=== PATIENT | female | born 1980 | race Caucasian/White ===

== ENCOUNTER → 2024-08-08 | Outpatient (CLI) | payer BC, SELFPAY ==
[2024-08-08 08:20] LABS: Misc Send Out* See Sep Rpt
[2024-08-08 09:43] LABS: Glucose Estimated Average 111 mg/dL (80-131); Hemoglobin A1C 5.5 % Hgb (4.8-6.0)
[2024-08-08 09:49] LABS: Glucose,Fasting 100 mg/dL (74-106)
[2024-08-13 07:06] LABS: hs-CRP* 3.9 mg/L
== END | disposition home or self-care (01) ==
LOC: COPL 08:00
PROVIDERS: PCP Internal Medicine; Referring Provider Psychiatry & Neurology Psychiatry; Visit Provider Psychiatry & Neurology Psychiatry
DX: F41.1 Generalized anxiety disorder (principal); F34.1 Dysthymic disorder; E55.9 Vitamin D deficiency, unspecified; E56.9 Vitamin deficiency, unspecified; E28.2 Polycystic ovarian syndrome; R52 Pain, unspecified; R73.09 Other abnormal glucose; Z79.899 Other long term (current) drug therapy
CPT/HCPCS: 36415; 82947; 83036; 86141

== ENCOUNTER → 2025-03-11 | Outpatient (CLI) | payer BC, SELFPAY ==
[2025-03-11 08:09] LABS: Misc Send Out* See Sep Rpt
[2025-03-11 08:46] LABS: Collection Type, Urine Clean Catch
[2025-03-11 09:19] LABS: INR 1.0 (0.9-1.3); Partial Thromboplastin Time 28.9 Seconds (22.0-36.0); Prothrombin Time 10.5 Seconds (9.0-12.2)
[2025-03-11 09:21] LABS: Basophils # (Auto) 0.1 Thou/mm3 (0.0-0.2); Basophils % (Auto) 1 % (0-2.5); Eosinophils # (Auto) 0.3 Thou/mm3 (0.0-0.5); Eosinophils % (Auto) 4 % (0-10); Hematocrit 45.0 % (36.0-46.0); Hemoglobin 15.2 g/dL (12.0-16.0); Immature Granulocytes Auto 0.02 Thou/mm3 (0.00-0.00); Lymphocytes # (Auto) 2.6 Thou/mm3 (1.0-4.8); Lymphocytes % (Auto) 36 % (10-50); Mean Corpuscular HGB Conc 33.8 g/dl (31.0-37.0); Mean Corpuscular Hemoglobin 29.2 pg (25.0-35.0); Mean Corpuscular Volume 86 fL (80-100); Monocytes # (Auto) 0.5 Thou/mm3 (0.0-0.8); Monocytes % (Auto) 7 % (0-12); Neutrophils # (Auto) 3.7 Thou/mm3 (1.8-7.7); Neutrophils % (Auto) 52 % (37-80); Nucleated Red Blood Cell # 0.00 Thou/mm3 (0.00-0.00); Nucleated Red Blood Cell % 0 /100 WBC (0); Platelet Count 304 Thou/mm3 (140-440); RDW Standard Deviation 39.3 fL (36.4-46.3); Red Blood Count 5.21 Miln/mm3 (4.00-5.20); White Blood Count 7.1 Thou/mm3 (3.6-11.0)
[2025-03-11 09:22] LABS: Bilirubin,Urine Negative (Negative); Blood,Urine Negative (Negative); Clarity,Urine Clear (Clear/Hazy); Color,Urine Lt-Yellow (Lt Yel-Yel); Glucose, Urine Negative (Negative); Ketones,Urine Negative (Negative); Leukocyte Esterase,Urine Negative (Negative); Nitrite,Urine Negative (Negative); PH,Urine 6.0 (5.0-7.0); Protein,Urine Negative (Neg - Trace); RBC,Urine 1 /hpf (0-3); Specific Gravity,Urine 1.013 (1.001-1.035); Squamous Epithelial Cell,Urine 2 /hpf (0-5); Urobilinogen,Urine Negative mg/dL (0.0-1.0); WBC,Urine 1 /hpf (0-5)
[2025-03-11 09:38] LABS: Iron 58 mcg/dL (50-170); Percent Iron Saturation 19 % (20-55); Total Iron Binding Capacity 302 mcg/dL (250-425); Unsaturated Iron Binding 244 (225-295)
[2025-03-11 09:41] LABS: Glucose Estimated Average 103 mg/dL (80-131); Hemoglobin A1C 5.2 % Hgb (4.8-6.0)
[2025-03-11 09:44] LABS: Alanine Aminotransferase 8 U/L (10-49); Albumin, Serum 4.3 gm/dL (3.5-5.0); Albumin/Globulin Ratio 1.7 (1.2-2.2); Alkaline Phosphatase 70 U/L (46-116); Anion Gap 9 (7-16); Aspartate Amino Transferase 20 U/L (0-34); BUN/Creatinine Ratio 9 Ratio (12-20); Bilirubin,Total 0.4 mg/dL (0.3-1.2); Blood Urea Nitrogen 8 mg/dL (9-23); Calcium 10.0 mg/dL (8.3-10.6); Calcium (Corrected) 10.0 mg/dL (8.5-10.1); Carbon Dioxide 25.8 mMol/L (20.0-31.0); Cardiac Risk Estimate 3.9 RATIO (3.7-5.6); Chloride 106 mMol/L (98-107); Cholesterol 162 mg/dL (132-200); Creatinine (Component) 0.9 mg/dL (0.6-1.3); Free T4 (Free Thyroxine) 1.17 ng/dL (0.89-1.76); Globulin 2.6 gm/dL (2.3-3.5); Glucose 86 mg/dL (74-106); HDL Cholesterol 42 mg/dL (40-60); LDL Cholesterol,Calculated 100 mg/dL (0-130); Magnesium 2.1 mg/dL (1.6-2.6); Osmolality,Calculated 278 (275-295); Potassium 3.8 mMol/L (3.4-5.1); Sodium 141 mMol/L (136-145); Thyroid Stimulating Hormone 1.24 uIU/mL (0.55-4.78); Total Protein 6.9 gm/dL (5.7-8.2); Triglycerides 100 mg/dL (30-150); Uric Acid 4.9 mg/dL (3.1-7.8); eGFR > 60 See Note
[2025-03-11 09:45] LABS: Folate > 24.00 ng/mL (>5.38); Vitamin B12 747 pg/mL (211-911); Vitamin D 25 Hydroxy Total 51.8 ng/mL (7.3-40.2)
[2025-03-11 10:12] LABS: Sed Rate (ESR) 15 mm/hr (0-20)
[2025-03-18 07:15] LABS: Vitamin B6, Plasma* 78.3 ng/mL (2.1-21.7)
[2025-03-18 07:27] LABS: Gamma Glutamyl Transpeptidase* 17 U/L (3-55); Gliadin(Deamidated)Ab,IgA 18.0 U/mL; Gliadin(Deamidated)Ab,IgG 5.1 U/mL; T3, Reverse, LC/MS/MS* 14 ng/dL (8-25); Zinc, Plasma* 107 mcg/dL (60-130); hs-CRP* 3.0 mg/L
== END | disposition home or self-care (01) ==
PROVIDERS: PCP Internal Medicine; Referring Provider Internal Medicine; Visit Provider Psychiatry & Neurology Psychiatry
DX: Z00.00 Encounter for general adult medical examination without abnormal findings (principal); F34.1 Dysthymic disorder; F41.1 Generalized anxiety disorder; E55.9 Vitamin D deficiency, unspecified; E56.9 Vitamin deficiency, unspecified; E28.2 Polycystic ovarian syndrome; R52 Pain, unspecified; R73.09 Other abnormal glucose; Z79.899 Other long term (current) drug therapy
CPT/HCPCS: 36415; 80053; 80061; 81001; 82306; 82607; 82746; 82977; 83036; 83540; 83550; 83735; 84207; 84439; 84443; 84482; 84550; 84630; 85025; 85610; 85652; 85730; 86141; 86258